=== PATIENT | female | born 1960 | race Caucasian/White ===

== ENCOUNTER 2025-07-07 05:49 | Observation (INO) ==
--- NOTE | 2025-02-13 10:05 | Anesthesiology Consultation ---
Date of Service February 13, 2025 Assessment & Plan (1) Encounter for pre-operative examination: Chart Review Chart Review: Patient NOT seen in Pre Admission Testing - Spoke with Dr. Lizarraga regarding parotid mass (s/p FNA with ENT) and anterior communicating artery aneurysm- patient can proceed in regards to parotid mass ( patient encouraged to follow up with ENT as directed) but patient needs neurosurgery clearance prior to proceeding in regards to aneurysm- patient and surgeon's office made aware. Patient will call PCP office to get neurosurgery clearance set up. Patient's procedure cancelled as of 02/14/25- will need neurosurgery clearance prior to reschedule - Will need EKG stat DOS -Infectious Disease screening: Per PAT nursing assessment on 02/08/25. Cough since January 2025- mild and occ. No known infectious disease contacts in past 10 days or current infectious disease symptoms. No recent travel outside the country. History Surgery Operation Date: 02/17/25 10:20 Proposed Procedures p Robotic Assisted Total Laparoscopic Hysterectomy, Bilateral Salping- Oophorectomy, Robotic Assisted Sacral Colpopexy and Cystoscopy, - Dev Boswell MD s Mid-Urethral Sling - Dev Boswell MD Height/Weight Height: 5 ft 3 in Weight: 72.575 kg Allergies Allergy/AdvReac Type Severity Reaction Status Date / Time ketorolac [From Toradol] AdvReac Unknown splitting Verified 02/08/25 12:38 h/a, nausea Medications Home Medications Medication Instructions Recorded Confirmed Last Taken acetaminophen 500 mg tablet 1,000 mg PO UD PRN Pain 02/08/25 02/08/25 Unknown (Tylenol Extra Strength) ibuprofen 400 mg tablet 400 mg PO UD PRN headache/pain 02/08/25 02/08/25 Unknown Past Medical History Medical History Arthritis History of COVID-19 hx approx 2020 or 2021 - no hx hospitalization. History of myocardial infarction (1995) per pt: "heart muscle was slightly damaged" due to pheochromocycstoma per p t/no problems since was removed. Pt is not sure what intervention if any at that time due to extensive in hospital stay. Has never needed to follow with cardiology. History of TIA (transient ischemic attack) (1995) mini strokes due to hx pheochromocytoma , once tumor was removed no problems since. 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 An enlarged necrotic intraparotid lymph node could appear similiar. Ultrasound gu ided FNA is recommended. Anterior communication artery aneurysm, measuring 4mm. Other chronic findings in neck. (Per [facility] records- PCP referred patient to neurosurgery regarding aneurysm 03/2024 (patient never followed up with neurosurgery; patient did have FNA by ENT to cystic lesion 04/19/24- results showed cystic components and rare atypical cells - follow up was recommended with ENT but patient never followed up)
--- NOTE | 2025-07-07 05:50 | History & Physical Report ---
Date of Service July 07, 2025 Assessment & Plan (1) Uterovaginal prolapse, complete: Plan: Failed pessary therapy and now desires surgery. We reviewed transvaginal surgery vs robotic assisted surgery and she prefers a robotic approach with hysterectomy, bso, sacral colpopexy, sling, and cystoscopy. Risks of surgery including infection, bleeding, injury, pain, mesh exposure, urinary incontinence, and urinary retention were discussed. All questions answered. Informed consent confirmed. Present on Admission?: Yes Admission and Anticipated Discharge Date Admission Date: 07/07/2025 Anticipated date of discharge: 07/08/25 History of Present Illness Chief Complaint: uterovaginal prolapse and stress incontinence Primary Care Provider: Kylie Simmons PA-C Dustin Vogt is a 64 year old woman who complains of feeling a vaginal bulge and stress urinary incontinence with coughing and sneezing. She tried a pessary without success and now desires surgery. Allergies Allergy/AdvReac Type Severity Reaction Status Date / Time ketorolac [From Toradol] AdvReac Intermediate splitting Verified 07/07/25 05:56 h/a, nausea Home Medications Medication Instructions Recorded Confirmed Type acetaminophen 500 mg tablet 1,000 mg PO UD PRN Pain 02/08/25 07/07/25 History (Tylenol Extra Strength) ibuprofen 400 mg tablet 400 mg PO UD PRN headache/pain 02/08/25 07/07/25 History Past Med/Surg History Problem List Uterovaginal prolapse, complete Medical History Aneurysm artery, neck states was cleared by Dr Kevin Faust, neuro surgeon [facility] ~04/2025 Arthritis History of COVID-19 hx approx 2020 or 2021 - no hx hospitalization. History of TIA (transient ischemic attack) (1995) mini strokes due to hx pheochromocytoma , once tumor was removed no problems since. History of myocardial infarction (1995) per pt: "heart muscle was slightly damaged" due to pheochromocycstoma per pt/no problems since was removed. Pt is not sure what intervention if any at that time due to extensive in hospital stay. Has never needed to follow with cardiology. Surgical History History of dental surgery History of tubal ligation History of pheochromocytoma (1995) dx and sx removed [place] Social History Smoking Status: Never smoker Second Hand Exposure: No; Do You Dip or Chew Tobacco: No; Tobacco Cessation Education Requested by Patient: No Hx Alcohol Use: No (rarely in hx, none current) Hx Substance Use: No Preferred Language: Citizen Of [place] Communication Ability: Effective Computer Science Teacher Required: No Beliefs That Will Affect Care: None Current Living Situation: Alone Other Information That Helps Us Care for You: No Feels Safe at Home: Yes Safety Concerns: Feels Safe At This Time Assistive Devices: Denture - Upper and Glasses Review of Systems Review of Systems: All systems reviewed & are unremarkable except as noted in HPI & below Physical Exam Constitutional: WD/WN, vitals as above Eyes: PERRL, conjunctivae normal, anicteric sclerae ENMT: external ear and nose normal, oropharynx normal Neck: trachea midline, no thyromegaly Respiratory: normal respiratory effort, lungs clear to auscultation Cardiovascular: RRR, no murmur, no edema Gastrointestinal (Abdomen): normal bowel sounds, soft, nontender, no hepatosplenomegaly Musculoskeletal: no cyanosis or clubbing, extremities motor strength 5/5 Skin: no rashes, warm and dry Neurologic: PERRL, EOMI, accommodation nl, no face palsy, no dysarthria Psychiatric: A+Ox3, euthymic affect Code Status & VTE Plan VTE Prophylaxis Plan VTE Prophylaxis will be ordered: Yes
[2025-07-07 06:19] LABS: Hematocrit (blood only) 42.7 % (37.0-47.0); Hemoglobin 14.8 g/dl (12.0-16.0); Immature Granulocytes # (auto) 0.01 K/uL (0.01-0.20); Immature Granulocytes % (auto) 0.1 %; Mean Corpuscular Hemoglobin 28.3 pg (25.0-34.0); Mean Corpuscular Volume 81.6 fL (80.0-100.0); Platelet Count 235 K/uL (130-400); RDW Standard Deviation 38.6 fL (36.4-46.3); Red Blood Count 5.23 M/uL (4.20-5.40); White Blood Count 8.16 K/ul (4.8-10.8)
[2025-07-07] MEDS: LR 15ML/HR IV SCH (06:22)
[2025-07-07 06:38] LABS: Anion Gap 10.0 (3-11); Blood Urea Nitrogen 23.0 mg/dl (6-23); Calcium 9.3 mg/dl (8.6-10.3); Carbon Dioxide 25.0 mmol/L (21-32); Chloride 105.0 mmol/L (98-107); Creatinine Clr Calc Pharmacy 60.4 ml/min; Glucose 108.0 mg/dl (70-99(Fasting)); Potassium 3.8 mmol/L (3.5-5.1); Sodium 140.0 mmol/L (136-145)
[2025-07-07] MEDS ORDERED: ATROPINE SULFATE 0.1 MG/ML 10ML SYR IV PRN (06:48)
[2025-07-07] MEDS ORDERED: NALOXONE HCL 0.4 MG/1 ML VIAL/CARP IV PRN (06:48)
[2025-07-07] MEDS ORDERED: PROMETHAZINE HCL 6.25 MG in SODIUM CHLORIDE 0.9% 50 ML IV PRN (06:48)
[2025-07-07] MEDS ORDERED: FLUMAZENIL 0.1 MG/1 ML 10 ML VIAL IV PRN (06:48)
[2025-07-07] MEDS ORDERED: ONDANSETRON INJ 2 MG/ML 2 ML VIAL IV PRN (06:48)
[2025-07-07] MEDS ORDERED: PROPOFOL IV EMULSION 10 MG/ML 20 ML VIAL IV ONE ×5 (07:04→08:03)
[2025-07-07] MEDS ORDERED: LIDOCAINE 2% 2 ML VIAL/AMP(20MG/ML) INFIL ONE (07:04)
[2025-07-07] MEDS ORDERED: DEXAMETHASONE SOD INJ 4 MG/ML VIAL ONE (07:04)
[2025-07-07] MEDS ORDERED: SODIUM CHLORIDE 0.9% PF INJ 10 ML VIAL ONE (07:04)
[2025-07-07] MEDS ORDERED: MIDAZOLAM HCL 1 MG/ML 2ML VIAL ONE (07:04)
[2025-07-07] MEDS ORDERED: ONDANSETRON INJ 2 MG/ML 2 ML VIAL ONE ×2 (07:04→07:05)
[2025-07-07] MEDS ORDERED: ROCURONIUM BROMIDE 10 MG/ML 5 ML VIAL IV ONE ×2 (07:05→08:52)
[2025-07-07] MEDS ORDERED: HYDROmorphone INJ 2 MG/ML SYR/VIAL ONE (07:05)
[2025-07-07] MEDS: metroNIDAZOLE 500 MG/100 ML BAG IV ONE (07:25)
[2025-07-07] MEDS ORDERED: PHENYLEPHRINE 100MCG/ML 5ML SYR ONE (07:58)
[2025-07-07] MEDS ORDERED: ePHEDrine sulfate 50 MG/5 ML SYR ONE ×2 (07:58→09:52)
[2025-07-07] MEDS ORDERED: SUGAMMADEX SODIUM 200 MG/2 ML VIAL IV ONE (08:09)
[2025-07-07] MEDS: PREMARIN VAG CRM 14 APPLN/30 GM TUBE ONE (10:45)
--- NOTE | 2025-07-07 10:52 | Electrocardiogram Report ---
Test Reason : Blood Pressure : */* mmHG Vent. Rate : 79 BPM Atrial Rate : 79 BPM P-R Int : 154 ms QRS Dur : 84 ms QT Int : 388 ms P-R-T Axes : 69 66 64 degrees QTcB Int : 444 ms Normal sinus rhythm Normal ECG No previous ECGs available Confirmed by Jason Boone ([id number]) on 07/07/2025 10:51:53 AM Referred By: Dev Boswell Confirmed By: Jason Boone
[2025-07-07] MEDS ORDERED: METHYLENE BLUE 0.5% 10 ML VIAL ONE (10:56)
[2025-07-07] MEDS: BUPIVACAINE 0.5 % 5 MG/1 ML MPF 30ML VIAL ONE (10:58)
[2025-07-07] MEDS: BUPIVACAINE LIPOSOME 1.3% 266 MG/20 ML VIAL ONE (11:09)
[2025-07-07] MEDS: LIDOCAINE 1%/EPINEPHRINE 1:100,000 50 ML VIAL ONE (11:10)
[2025-07-07] MEDS ORDERED: KETOROLAC 30 MG/ML VIAL IV PRN (11:37)
[2025-07-07] MEDS ORDERED: ACETAMINOPHEN 325 MG TAB PO PRN (11:37)
--- NOTE | 2025-07-07 11:48 | Operative Report ---
Post Operative Report Pre & Post Diagnosis Operation Date: 07/07/25 07:30 Pre-Op Diagnosis: Uterovaginal prolapse, complete, Stress incontinence Post-Op Diagnosis: Uterovaginal prolapse, complete, Stress incontinence I identified the patient and participated in the time-out.: Yes Procedure Operation Date: 07/07/25 07:30 Actual Procedures p Total Vaginal Hysterectomy, Robotic Assisted Bilateral Salpingectomy,, Robotic Assisted Sacral Colpopex, Posterior colporrhaphy, Sling, and Cystoscopy(Not Applicable) - Dev Boswell MD s Mid-Urethral Sling(Not Applicable) - Dev Boswell MD Surgeon Dev Boswell MD Rand Maker Leslie Bellamy PA-C Estimated Blood Loss 50 Findings Consistent with Post-Op Diagnosis complete procidentia. Normal ovaries bilaterally. On cystoscopy, cloudy urine secondary to stagnant urine, no lesions. Excellent efflux of ureters bilaterally Fluids crystalloid Specimens cervix, uterus, bilateral fallopian tubes, vaginal mucosa Drains Peña catheter Anesthesia Type General Complications none Disposition Accompanied Patient To Recovery: Yes Disposition: Recovery Room Indications symptomatic uterovaginal prolapse, stress incontinence Description of Procedure After Pilar Vogt was correctly identified in Preop, the surgical procedures, indications, risks, benefits, and alternatives were discussed in detail. All questions answered and informed consent was confirmed. Patient was taken to the operating room and give general anesthesia per anesthesia service. Patient was prepped and draped in the usual sterile fashion and time out was performed. A Peña catheter was placed with cloudy urine drained. Specimen was sent for urine culture. Complete procidentia was observed on exam. At the abdomen, a previous midline vertical incision/scar was observed and a left upper quadrant entry with optiview was performed with an 8 mm robotic trocar. Visually, the trocar was passed through the incision, fascia, and peritoneum into the abdominal cavity. Omental adhesions obscured the laparoscopic view. The trocar was left in place and a decision to perform a vaginal hysterectomy was made. Vaginally, the cervix was grasped with a tenaculum and the mucosa was infiltrated with 1% lidocaine with epinephrine. An incision was made with electrocautery following the junction of the cervix and vaginal mucosa. The posterior peritoneum was identified and entered sharply. A large billed speculum was placed into the posterior cul-de-sac. The bladder was dissected off the cervix, the peritoneum was identified, and the anterior cul-de-sac was entered sharply. The anterior incision and bladder was retracted with a Nicho. The uterosacral ligaments were bilaterally Monika clamped, transected and suture ligated with 0 Vicryl. The cardinal ligaments were bilaterally Monika clamped, transected and suture ligated with 0 Vicryl. The uterine vessels were bilaterally Monika clamped, transected and suture ligated with 0 Vicryl. The round ligaments and utero-ovarian pedicles were bilaterally double Monika clamped, transected and double suture ligated with 0 Vicryl. The cervix and uterus was sent to pathology. Excellent hemostasis was confirmed. The vaginal cuff was partially closed with 0 Vicryl in a figure of eight fashion with an opening large enough to pass a 5 mm laparoscopic trocar. The CO2 tubing was attached and the abdomen was insufflated. A 5 mm 0 deg scope was placed through the trocar to visualize the abdomen. Omental adhesions were observed. A free spaced was identified on the patient's right and an 8 mm trocar was placed under direct visualization. The omental adhesions were taken down with the harmonic scalpel. The originally placed LUQ trocar was found to be surrounded by omental adhesions and no bowel injury was observed. The omental adhesions were freed from the trocar. With the adhesions taken down, the vaginal trocar was removed and the vaginal cuff was completely closed with 0 Vicryl. At the abdomen, an umbilical trocar was placed, and an additional trocar was placed on the lateral aspects of the left and right mid abdomen. Patient was placed in Trendelenburg position to allow the small bowel to retract out the pelvis. The robot was docked. The bladder was dissected off the anterior vaginal wall for 8 cm distally. The posterior peritoneum and rectum was dissected off the posterior vaginal wall for 10 cm distally. The sacral promontory was identified and an incision into the peritoneum was made and extended along the right yovani- colic gutter with excellent visualization of the ureter and rectum. The Y mesh was secured to the poterior and anterior vaginal cannon with 2-0 V-lock suture. With appropriate tensioning the tail end of the Y mesh was secured to the anterior longitudinal ligament below the sacral promontory with two interrupted sutures of CV0 Sentinel-neetu. The excess mesh was trimmed and removed. The peritoneum was closed over the mesh with 2-0 V lock suture. The fallopian tubes were identified, dissected free, and excised with excellent hemostasis. The tubes were sent to pathology. Excellent hemostasis was confirmed, the robot was undocked, and the incisions were closed with 4-0 Monocryl in a subcuticular fashion and dressed with surgical glue. Vaginally, excellent support of the anterior vaginal wall and apex was observed. A distal rectocele was observed. The vaginal mucosa overlying the rectocele was grasped with Allis clamps and was sharply dissected. The rectovaginal fascia was imbricated in the midline with interrupted sutures of 2-0 Vicryl. The excess mucosa was trimmed and sent to pathology. The incision was closed with 2-0 Vicryl. The vaginal mucosa overlying the mid-urethra was grasped with Allis clamps and infiltrated with 1% lidocaine with epinephrine. A 1 cm vertical incision was made. The vaginal mucosa was sharply dissected from the urethra toward the pubic rami bilaterally. The Solyx sling was assembled. The needle introducer was placed through the incision, advanced toward the left pubic rami, and inserted into the left obturator internus. The second needle introducer was placed through the incision, advanced toward the right pubic rami, and inserted into the right obturator internus with appropriate tensioning of the sling. The Peña was removed and cystoscopy was performed with 250 ml of irrigation fluid. No lesions, lacerations, or foreign body was observed in the bladder dome, trigone, and urethra. Excellent efflux of ureter were demonstrated from each ureteral orifice bilaterally. The cystoscope was removed and the Peña catheter was placed. Excellent hemostasis was observed. Vaginal estrogen cream was applied. A rectal exam was normal. All sponge, lap, and needle counts were correct. Patient was extubated, awakened, and sent to recovery in good condition. I attest to the content of the Intraoperative Record and any orders documented therein. Any exceptions are noted below. No qualified resident was available. An advanced practitioner, Leslie Bellamy PA-C, was necessary to assist during the surgery for patient positioning, draping, retraction, irrigation, robot docking, and robotic instrument exchange.
--- NOTE | 2025-07-07 13:08 | Anesthesiology Progress Note ---
Date of Service July 07, 2025 Anesthesia Post Procedure Vital Signs Vital Signs: Temp Pulse Resp BP Pulse Ox O2 Del Method O2 Flow Rate 07/07/25 13:00 83 17 129/70 93 Nasal Cannula 2 07/07/25 12:50 85 16 132/69 97 Nasal Cannula 2 07/07/25 12:40 36.4 C L 85 17 127/69 96 Nasal Cannula 2 07/07/25 12:30 84 17 137/66 97 Nasal Cannula 2 07/07/25 12:20 85 13 129/71 97 Nasal Cannula 2 07/07/25 12:10 84 13 128/64 97 Nasal Cannula 2 07/07/25 12:00 81 16 140/65 97 Oxymask 2 07/07/25 11:50 85 15 116/57 L 93 Oxymask 2 07/07/25 11:43 36.1 C L 82 15 126/61 98 Oxymask 4 07/07/25 06:08 36.9 C 84 16 180/96 H 98 Room Air Pain Intensity Abdomen: Pain Intensity: 3 Transfer of Care Handoff Completed per policy Notes Mental Status: alert / awake / arousable Patient Amnestic to Procedure: Yes Nausea / Vomiting: adequately controlled Pain: adequately controlled Airway Patency, RR, SpO2: stable & adequate BP & HR: stable & adequate Hydration State: stable & adequate Anesthetic Complications: no major complications apparent Notes: Patient developed new-onset LBBB in OR. Pt was H/D stable. Pt brought to PACU in stable condition. 12 lead EKG performed showing NSR w/ LBBB. Troponins drawn and results are 11.[address] Boswell made aware. I spoke w/ Dr Orellana about this pt and a consult for him was ordered.
--- NOTE | 2025-07-07 13:50 | Cardiology Consultation ---
Date of Consultation July 07, 2025 Assessment & Plan (1) LBBB (left bundle branch block): (2) Status post vaginal hysterectomy: Plan Patient is 64 year old female who underwent complete vaginal hysterectomy this morning. Post op she was noted to have widened QRS on telemetry. EKG confirmed NSR with New LBBB. Cardiology consulted. EKG prior to surgery demonstrated NSR, normal EKG. No conduction system disease. EKG from 2019 revealed NSR without conduction system disease. 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 this resolved. Recommendations HS troponin negative x1 Echo pending Patient is asymptomatic. Can repeat EKG prior to discharge to see if LBBB has resolved. As long as echo is unremarkable, no further cardiac testing recommended during admission. Case discussed with Dr. Maldonado I spent a total of 60 minutes on the date of service in preparation, delivery, and documentation of the care provided to this patient, excluding any time spent in the performance of separately billed services. Vesna Macdonald PA-C Department of Cardiology, [facility] This chart was completed in part utilizing Speech Voice Recognition Software. Grammatical errors, random word insertions, pronoun errors, and incomplete sentences are an occasional consequence of this system due to software limitations, ambient noise, and hardware issues. Any formal questions or concerns about the content, text, or information contained within the body of this dictation should be directly addressed to the provider for clarification. Supervising Physician Co-Signing Physician Notes I have personally performed a history and physical examination on the patient.I have reviewed the advance practitioner's documentation, and I agree with, and take responsibility for the plan of care. 64-year-old female underwent total vaginal hysterectomy this morning. In the postop setting, cardiac monitored demonstrated widened QRS and ECG confirming presence of new left bundle branch block. Asymptomatic from a cardiovascular perspective. Denies chest pain or unusual shortness of breath. Active prior to surgery without exertional symptoms. Remote history of pheochromocytoma and stress-induced cardiomyopathy in the late . Preliminary review of bedside echocardiogram demonstrates normal LV systolic function with mild apical septal wall motion abnormality consistent with left bundle branch block. No further inpatient cardiac testing or intervention recommended at this time. Patient may follow-up as an outpatient to consider stress testing when she has recovered from surgery. I spent a total of 35 minutes on the date of service in preparation, delivery, and documentation of the care provided to this patient, excluding any time spent in the performance of separately billed services. Lui Maldonado DO, [facility] History of Present Illness Reason for Consultation: New LBBB in the post op setting Requesting Physician: Dr. Boswell Attending Physician: Dr. Maldonado History of Present Illness Patient is a 64 year old female who underwent a total vaginal hysterectomy this morning at [facility]. She tolerated procedure without issue. In the post op setting, she was found to have widened QRS and EKG post op demonstrated NSR with New LBBB. She denied chest pain or SOB upon evaluation and awakening from surgery. HS troponin negative x1. Cardiology consulted for further evaluation of new LBBB. History includes possible myocarditis/stress induced cardiomyopathy with LVEF < 10% in 1995. Improved LVEF within 2 weeks. Diagnosed with pheochromocytoma at the time. No cardiology f/u after event. She takes no prescription medications on a regular basis. No family history of heart disease. No recent chest pain, dyspnea, dizziness, palpitations, syncope or near syncope prior to surgery. Fairly active and exercises regularly without symptoms. At time of evaluation, patient resting in bed. Just ambulated from restroom. No chest pain or SOB. No orthopnea. No dizziness. No palpitations. Feels "tired" having had anesthesia this morning. No other symptoms. 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 History of TIA (transient ischemic attack) (1995) mini strokes due to hx pheochromocytoma , once tumor was removed no problems since. History of myocardial infarction (1995) per pt: "heart muscle was slightly damaged" due to pheochromocycstoma per pt/no problems since was removed. Pt is not sure what intervention if any at that time due to extensive in hospital stay. Has never needed to follow with cardiology. Surgical History History of dental surgery History of tubal ligation History of pheochromocytoma (1995) dx and sx removed [place] Social History Smoking Status: Never smoker Second Hand Exposure: No; Do You Dip or Chew Tobacco: No; Tobacco Cessation Education Requested by Patient: No Hx Alcohol Use: No Hx Substance Use: No Preferred Language: Slovenian Communication Ability: Effective Chief Client Officer Required: No Beliefs That Will Affect Care: None Current Living Situation: Alone Other Information That Helps Us Care for You: No Feels Safe at Home: Yes Safety Concerns: Feels Safe At This Time Assistive Devices: None Review of Systems Review of Systems: All systems reviewed & are unremarkable except as noted in HPI & below Physical Exam Constitutional: WD/WN, vitals as above Neck: trachea midline, no thyromegaly Respiratory: normal respiratory effort Auscultation: lungs clear to auscultation bilaterally Cardiovascular: Rate/Rhythm: regular rate and regular rhythm Heart Sounds: normal S1 and normal S2 Vessels: no JVD Extremities: no edema (SCD's in place) Gastrointestinal (Abdomen): normal bowel sounds, soft, nontender, no hepatosplenomegaly Results & Data Vital Signs (Past 12 Hours) Vital Signs Temp Pulse Resp BP Pulse Ox O2 Del Method O2 Flow Rate 07/07/25 13:20 83 14 131/84 95 Nasal Cannula 2 07/07/25 13:10 83 17 130/75 95 Nasal Cannula 2 07/07/25 13:00 83 17 129/70 93 Nasal Cannula 2 07/07/25 12:50 85 16 132/69 97 Nasal Cannula 2 07/07/25 12:40 36.4 C L 85 17 127/69 96 Nasal Cannula 2 07/07/25 12:30 84 17 137/66 97 Nasal Cannula 2 07/07/25 12:20 85 13 129/71 97 Nasal Cannula 2 07/07/25 12:10 84 13 128/64 97 Nasal Cannula 2 07/07/25 12:00 81 16 140/65 97 Oxymask 2 07/07/25 11:50 85 15 116/57 L 93 Oxymask 2 07/07/25 11:43 36.1 C L 82 15 126/61 98 Oxymask 4 07/07/25 06:08 36.9 C 84 16 180/96 H 98 Room Air Laboratory Results Cardiac Enzymes 07/07/25 Range/Units 12:00 Troponin I High Sens 11.3 (0-14) pg/ml CBC 07/07/25 Range/Units 05:51 WBC 8.16 (4.8-10.8) K/ul RBC 5.23 (4.20-5.40) M/uL Hgb 14.8 (12.0-16.0) g/dl Hct 42.7 (37.0-47.0) % Plt Count 235 (130-400) K/uL Neut # (Auto) 5.28 (1.40-6.50) K/uL Lymph # (Auto) 2.04 (1.20-3.40) K/uL Rabun # (Auto) 0.70 H (0.11-0.59) K/uL Eos # (Auto) 0.08 (0.00-0.50) K/uL Baso # (Auto) 0.05 (0.00-0.20) K/uL Comprehensive Metabolic Panel 07/07/25 Range/Units 05:51 Sodium 140 (136-145) mmol/L Potassium 3.8 (3.5-5.1) mmol/L Chloride 105 (98-107) mmol/L Carbon Dioxide 25 (21-32) mmol/L BUN 23 (6-23) mg/dl Creatinine 0.93 (0.6-1.2) mg/dl Glucose 108 H (70-99(Fasting)) mg/dl Calcium 9.3 (8.6-10.3) mg/dl Intake and Output 07/06/25 07/07/25 07/07/25 22:59 06:59 14:59 Intake Total 1600 / 1600 Output Total 600 / 600 Balance 1000 / 1000 Intake: IV 0 / 0 Lactated Ringer's 1,000 ml @ 15 0 / 0 mls/hr IV .Q24H [facility] Rx#: [id number] IV Perioperative 1600 / 1600 Output: Estimated Blood Loss 50 / 50 Urine Amount (Catheter) 550 / 550 Peña/Indwelling 550 / 550 Other: Weight 73.9 kg 73.9 kg Weight Measurement Method Standing Scale Built in [facility] Patient Weight 07/08/25 06:59 Weight 73.9 kg Diagnostic Findings EKG reviewed from post op 07/07 at 11:45: NSR at 79 bmp LAD LBBB EKG reviewed from preop 07/07/25 at 6:19: NSR, normal EKG Prior data reviewed: EKG reviewed from 09/30/2019: NSR, normal EKG Echo report reviewed from 04/26/1996: IMPRESSION: 1. Marked improvement in ventricular function compared to previous study of 04/18/96. 2. Moderate increase in wall thickness. 3. Normal cavity size with ejection fraction greater than or equal to 50%. 4. Otherwise normal study. [facility] report reviewed from 04/18/1996: FINDINGS: 1. Dilated left ventricle with severe systolic dysfunction, ejection fraction estimated at 10 to 15%. 2. Linear density at the apex consistent with a possible laminated mural thrombus. 3. No evidence of pedunculated or mobile apical mural thrombus. 4. Prominent pectinate bands in the left atrial appendage without evidence of thrombus in the left atrial appendage. 5. Prominent eustachian valve in the right atrium which is a variant of normal. 6. No evidence of atrioseptal defect or other potential source of intracardiac shunt. Echo report reviewed from 04/15/1996 1. Abnormal wall motion contraction pattern with hyperdynamic apex but akinesis of all remaining wall segments. This pattern makes it impossible to estimate an ejection fraction for the entire ventricle given the wide disparity in contraction patterns from base to apex. This pattern is most likely consistent with an inflammatory process such as myocarditis. 2. Mild mitral regurgitation with nonspecific thickening of the mitral valve leaflets. 3. Mild tricuspid regurgitation without Doppler evidence of significant pulmonary hypertension. Medications Administered Home Medications acetaminophen 500 mg tablet (Tylenol Extra Strength) 1,000 mg PO UD PRN Pain 02/08/25 [History Confirmed 07/07/25] ibuprofen 400 mg tablet 400 mg PO UD PRN headache/pain 02/08/25 [History Confirmed 07/07/25] PG Care Time/CCT Total # of Minutes Spent Total Time Spent with Patient: Total time spent is greater than 50% in coordination of care (as documented) at patient's floor/unit and/or counseling patient: Coding Level of Care Code 50490 IN/OBS CONSULT LVL 5,80M Diagnoses LBBB (left bundle branch block) I44.7 Status post vaginal hysterectomy Z90.710
[2025-07-07] MEDS: IBUPROFEN 600 MG TAB PO SCH (13:57)
--- NOTE | 2025-07-07 14:28 | Electrocardiogram Report ---
Test Reason : Blood Pressure : */* mmHG Vent. Rate : 79 BPM Atrial Rate : 79 BPM P-R Int : 172 ms QRS Dur : 146 ms QT Int : 484 ms P-R-T Axes : 61 -49 97 degrees QTcB Int : 554 ms Normal sinus rhythm Left axis deviation Left bundle branch block Abnormal ECG When compared with ECG of 07-Jul-2025 06:19, Left bundle branch block is now Present Confirmed by Jason Boone ([id number]) on 07/07/2025 2:27:29 PM Referred By: Dev Boswell Confirmed By: Jason Boone
--- NOTE | 2025-07-07 16:06 | XCELERA ---
[id number]
[2025-07-07] MEDS: metroNIDAZOLE 500 MG/100 ML BAG IV SCH (18:08)
[2025-07-07] MEDS ORDERED: Nursing to Pharmacy Communication SCH (19:30)
[2025-07-07] MEDS: ONDANSETRON INJ 2 MG/ML 2 ML VIAL IV PRN (20:12)
[2025-07-07 23:57] VITALS: RESP 16
[2025-07-08 07:35] LABS: Hematocrit (blood only) 36.4 % (37.0-47.0); Hemoglobin 12.4 g/dl (12.0-16.0); Immature Granulocytes # (auto) 0.05 K/uL (0.01-0.20); Immature Granulocytes % (auto) 0.3 %; Mean Corpuscular Hemoglobin 27.9 pg (25.0-34.0); Mean Corpuscular Volume 81.8 fL (80.0-100.0); Platelet Count 207 K/uL (130-400); RDW Standard Deviation 39.1 fL (36.4-46.3); Red Blood Count 4.45 M/uL (4.20-5.40); White Blood Count 14.36 K/ul (4.8-10.8)
[2025-07-08 08:32] LABS: Anion Gap 8.0 (3-11); Blood Urea Nitrogen 15.0 mg/dl (6-23); Calcium 8.5 mg/dl (8.6-10.3); Carbon Dioxide 24.0 mmol/L (21-32); Chloride 107.0 mmol/L (98-107); Creatinine Clr Calc Pharmacy 67.7 ml/min; Glucose 98.0 mg/dl (70-99(Fasting)); Potassium 3.7 mmol/L (3.5-5.1); Sodium 139.0 mmol/L (136-145)
[2025-07-08 09:17] VITALS: PULSE 77; TEMP 98.1; O2SAT 98
--- NOTE | 2025-07-08 09:43 | Gynecologic Progress Note ---
Date of Service July 08, 2025 Assessment & Plan (1) Uterovaginal prolapse, complete: Plan: POD# 1 s/p vaginal hysterectomy, robotic bilateral salpingectomy, sacral colpopexy, posterior colporrhaphy, sling, and cystoscopy Feeling well, voiding well, no complaints Present on Admission?: Yes Plan Procedure reviewed Post op instructions reviewed Follow up in 2 weeks Reviewed LBBB, normal troponin, cardiology consult, and echocardiogram findings. Patient is asymptomatic. Follow up with PCP Admission and Anticipated Discharge Date Admission Date: July 07, 2025 Anticipated date of discharge: 07/08/25 Subjective Feeling well, no complaints. Denies chest pain, SOB, nausea. Pain well controlled Review of Systems Review of Systems: All systems reviewed & are unremarkable except as noted in HPI & below Physical Exam Constitutional: WD/WN, vitals as above Eyes: PERRL, conjunctivae normal, anicteric sclerae ENMT: external ear and nose normal, oropharynx normal Neck: trachea midline, no thyromegaly Respiratory: normal respiratory effort, lungs clear to auscultation Cardiovascular: RRR, no murmur, no edema Gastrointestinal (Abdomen): normal bowel sounds, soft, nontender, no hepatosplenomegaly Musculoskeletal: no cyanosis or clubbing, extremities motor strength 5/5 Skin: no rashes, warm and dry Neurologic: PERRL, EOMI, accommodation nl, no face palsy, no dysarthria Psychiatric: A+Ox3, euthymic affect Results & Data Vital Signs (Past 12 Hours) Vital Signs Temp Pulse Resp BP BP Pulse Ox O2 Del Method 07/08/25 07:54 36.7 C 77 16 148/65 H 98 Room Air 07/08/25 04:10 37.0 C 91 H 16 136/61 96 Room Air 07/07/25 23:55 36.9 C 88 16 131/61 95 Room Air Laboratory Results HGB 12.4 Creatinine 0.83 Troponin 11.3 Diagnostic Findings Echocardiogram Interpretation: The study was technically adequate. There is no comparison study available Left Ventricular Ejection Fraction = 60-65% Mild apical anteroseptal wall motion abnormality consistent with conduction abnormality. Otherwise, normal wall motion. Pulse wave TDI of the anterior and posterior mitral annulas demonstrates normal LV relaxation No significant valvular pathology
--- NOTE | 2025-07-08 09:50 | Discharge Summary ---
Date of Service July 08, 2025 Admission HPI Per Admitting Provider Dustin Vogt is a 64 year old woman who complains of feeling a vaginal bulge and stress urinary incontinence with coughing and sneezing. She tried a pessary without success and now desires surgery. Admission Exam (Per Admitting) Constitutional WD/WN, vitals as above Eyes PERRL, conjunctivae normal, anicteric sclerae ENMT external ear and nose normal, oropharynx normal Neck trachea midline, no thyromegaly Respiratory normal respiratory effort, lungs clear to auscultation Cardiovascular RRR, no murmur, no edema Gastrointestinal (Abdomen) normal bowel sounds, soft, nontender, no hepatosplenomegaly Musculoskeletal no cyanosis or clubbing, extremities motor strength 5/5 Skin no rashes, warm and dry Neurologic PERRL, EOMI, accommodation nl, no face palsy, no dysarthria Psychiatric A+Ox3, euthymic affect Discharge Data Consultations 07/07/25 12:11 Consult Cardiology Routine Procedures Performed Operation Date: 07/07/25 07:30 Actual Procedures p Total Vaginal Hysterectomy, Robotic Assisted Laparoscopic Bilateral Salpingectomy, Robotic Assisted Sacral Colpopexy(Bilateral) - Dev Boswell MD s Mid-Urethral Sling(Not Applicable) - Dev Boswell MD s Cystoscopy(Not Applicable) - Dev Boswell MD Hospital Course (1) Uterovaginal prolapse, complete: POD# 1 s/p vaginal hysterectomy, robotic bilateral salpingectomy, sacral colpopexy, posterior colporrhaphy, sling, and cystoscopy Feeling well, voiding well, no complaints Plan Procedure reviewed Post op instructions reviewed Follow up in 2 weeks Reviewed LBBB, normal troponin, cardiology consult, and echocardiogram findings. Patient is asymptomatic. Follow up with PCP
[2025-07-08 09:54] VITALS: BP 131/61
== END 2025-07-08 10:40 | disposition home or self-care (01) ==
LOC: 4E1 05:49 → ASU 05:49